=== PATIENT | female | born 1960 | race Caucasian/White ===

== ENCOUNTER 2016-07-20 07:03 | Emergency (ER) | payer OTHER ==
[2016-07-20 07:15] VITALS: BP 122/80
== END 2016-07-20 07:50 | disposition home or self-care (01) ==
LOC: ED 07:03
DX: S61.411A Laceration without foreign body of right hand, initial encounter (principal); X58.XXXA Exposure to other specified factors, initial encounter; Y93.89 Activity, other specified; Y99.8 Other external cause status; Y92.89 Other specified places as the place of occurrence of the external cause

== ENCOUNTER 2016-07-22 06:40 | Emergency (ER) | payer OTHER ==
[2016-07-22 06:47] VITALS: BP 134/85
== END 2016-07-22 07:29 | disposition home or self-care (01) ==
LOC: ED 06:40
DX: S61.411A Laceration without foreign body of right hand, initial encounter (principal); I11.9 Hypertensive heart disease without heart failure; E78.00 Pure hypercholesterolemia, unspecified; Z79.899 Other long term (current) drug therapy; X58.XXXA Exposure to other specified factors, initial encounter; Y93.89 Activity, other specified; Y92.89 Other specified places as the place of occurrence of the external cause; Y99.8 Other external cause status

== ENCOUNTER 2019-10-01 15:47 | Emergency (ER) | payer OTHER ==
[~2019-10-01] VITALS: Ht 167.6 cm; Wt 58.5 kg
[2019-10-01 16:04] VITALS: Ht 167.6 cm; Wt 58.5 kg
[2019-10-01 17:57] LABS: BASOPHIL % 0.7 % (0-2); PLATELET COUNT 209 x10^3mcL (130-400); RED CELL DISTRIBUTION WIDTH 14.3 % (11.5-14.5)
[2019-10-01 18:04] LABS: CALCIUM 9.2 mg/dL (8.5-10.1); CARBON DIOXIDE 31.2 mmol/L (21-32); CHLORIDE SERUM 102 mmol/L (98-107); CREATININE SERUM 0.8 mg/dL (0.6-1.0); GFR1 > 60 mL/min; GLUCOSE SERUM 111 mg/dL (74-106); POTASSIUM SERUM 4.7 mmol/L (3.5-5.1); SODIUM SERUM 138 mmol/L (136-145)
[2019-10-01 18:09] LABS: ALKALINE PHOSPHATASE 72 U/L (46-116); ALT/SGPT 27 U/L (14-59); AST/SGOT 21 U/L (15-37); BILIRUBIN TOTAL 0.5 mg/dL (0.20-1.00); TOTAL PROTEIN, SERUM 7.4 g/dL (6.4-8.2)
[2019-10-01 18:45] VITALS: BP 128/56
== END 2019-10-01 18:45 | disposition short-term general hospital (02) ==
LOC: ED 15:47
PROVIDERS: Emergency Medicine
DX: R23.3 Spontaneous ecchymoses (principal); I11.0 Hypertensive heart disease with heart failure; I50.9 Heart failure, unspecified
CPT/HCPCS: G0480; Q0092